=== PATIENT | female | born 1975 | race Caucasian/White ===

== ENCOUNTER 2019-03-10 09:58 | Day surgery (SDC) | payer OTHER ==
[~2019-03-10 09:58] MED LIST: CEFAZOLIN 2 GM/50 ML (PMX) 50 ML IVPB
[2019-03-10 11:18] LABS: ADD MAN DIFF? NO
[2019-03-10 11:20] LABS: WHITE BLOOD COUNT 5.1 10^3/ul (4.8-10.8)
[2019-03-10 11:21] LABS: BASOPHILS % 0.2 % (0.0-2.0); EOSINOPHILS # 0.1 10^3/ul (0.0-0.5); EOSINOPHILS % 2.3 % (0.0-7.0); HEMATOCRIT 39.4 % (37.0-47.0); HEMOGLOBIN 12.9 g/dl (12.0-16.0); LYMPHOCYTES # 1.7 10^3/ul (0.8-2.9); LYMPHOCYTES % 32.4 % (15.0-51.0); MEAN CORPUSCULAR HEMOGLOBIN 28.5 pg (29.0-33.0); MEAN CORPUSCULAR HGB CONC 32.7 g/dl (32.0-37.0); MEAN CORPUSCULAR VOLUME 87.2 fl (82.0-101.0); MEAN PLATELET VOLUME 9.9 fl (7.4-10.4); MONOCYTE # 0.3 10^3/ul (0.3-0.9); MONOCYTES % 6.6 % (0.0-11.0); NEUTROPHILS % 58.1 % (39.0-77.0); PLATELET COUNT 272 10^3/UL (140-415); RED BLOOD COUNT 4.52 10^6/ul (4.20-5.40)
[2019-03-10] MEDS: SOD CHLORIDE 0.9% 1,000 ML IV (11:26)
[2019-03-10 11:43] LABS: INR 0.85; PROTIME 11.7 Sec (11.9-14.9); PT RATIO 0.9
[2019-03-10 11:44] LABS: PARTIAL THROMBOPLASTIN TIME 26.1 Sec (23.0-35.0)
[2019-03-10 11:53] LABS: ALANINE AMINOTRANSFERASE 54 IU/L (13-69); ALBUMIN 4.4 g/dl (3.3-4.9); ALBUMIN/GLOBULIN RATIO 1.25; ALKALINE PHOSPHATASE 57 IU/L (42-121); ANION GAP 9 (5-13); ASPARTATE AMINO TRANSFERASE 32 IU/L (15-46); BILIRUBIN,INDIRECT 0.4 mg/dl (0-1.1); BILIRUBIN,TOTAL 0.4 mg/dl (0.2-1.3); BLOOD UREA NITROGEN 10 mg/dl (7-20); CALCIUM 9.6 mg/dl (8.4-10.2); CARBON DIOXIDE 27 mmol/L (21-31); CHLORIDE 105 mmol/L (97-110); CREATININE 0.59 mg/dl (0.44-1.00); Estimated GFR > 60 mL/min (>60); GLUCOSE 124 mg/dl (70-220); POTASSIUM 4.5 mmol/L (3.5-5.1); SODIUM 141 mmol/L (135-144); TOTAL PROTEIN 7.9 g/dl (6.1-8.1)
[2019-03-10] MEDS ORDERED: BUPIVACAINE 0.25% (MPF) 30 ML INJ (13:15)
[2019-03-10] MEDS ORDERED: LIDOCAINE 2% (MDV) 20 ML INJ (13:22)
[2019-03-10] MEDS ORDERED: MIDAZOLAM 1 MG/ML 2 ML INJ (13:24)
[2019-03-10] MEDS ORDERED: hydrALAzine 20 MG INJ IV (13:30)
[2019-03-10] MEDS ORDERED: LABETALOL HCL 20MG INJ IV (13:30)
[2019-03-10] MEDS ORDERED: SUCCINYLCHOLINE CHLORIDE 100 MG/5 ML SYG IV (13:39)
[2019-03-10] MEDS ORDERED: LIDOCAINE 2% (SDV) 5 ML INJ (13:39)
[2019-03-10] MEDS ORDERED: PROPOFOL 20 ML (13:39)
[2019-03-10] MEDS ORDERED: FENTAnyl 50 MCG/ML VIAL (13:47)
[2019-03-10] MEDS ORDERED: ROCURONIUM 50 MG INJ (13:49)
[2019-03-10] MEDS ORDERED: CEFAZOLIN 1 GM INJ (13:49)
[2019-03-10] MEDS ORDERED: ONDANSETRON 4 MG INJ (13:51)
[2019-03-10] MEDS ORDERED: PHENYLephrine (100 MCG/ML) 10ML SYG (14:06)
[2019-03-10] MEDS: BACITRACIN/POLYMYXIN 28.35 GM OINT TOP (14:26)
[2019-03-10] MEDS: BUPIVACAINE 0.5% (SDV) 30 ML INJ (14:27)
[2019-03-10] MEDS ORDERED: HYDROCODONE/APAP (5/325) TAB PO (14:30)
[2019-03-10] MEDS: KETOROLAC 30 MG INJ IV (15:09)
[2019-03-10] MEDS: ONDANSETRON 4 MG INJ IV (15:15)
[2019-03-10] MEDS: ACETAMINOPHEN 1000MG/100ML IV 100 ML IVPB (16:27)
== END 2019-03-10 17:36 | disposition home or self-care (01) ==
LOC: SDS 09:58
DX: D17.0 Benign lipomatous neoplasm of skin and subcutaneous tissue of head, face and neck (principal); I10 Essential (primary) hypertension; E11.9 Type 2 diabetes mellitus without complications; E66.9 Obesity, unspecified; E78.00 Pure hypercholesterolemia, unspecified
CPT/HCPCS: 14021; 80053; 82962; 85025; 85610; 85730